=== PATIENT | male | born 1980 | race Caucasian/White ===

== ENCOUNTER 2018-09-24 10:28 | Emergency (ER) | payer BC ==
[~2018-09-24] VITALS: Ht 177.8 cm; Wt 88.5 kg
[~2018-09-24 10:28] MED LIST: BSP5T; CEPH500C PO; NAPR220C11 PO; PNT40TEC PO; PRX20T; PRX20T PO; SCR1T1 PO
--- OUTSIDE RECORDS SUMMARY | 2018-09-24 10:33 | XMS REPORT | Continuity of Care Document ---
Author Organization Unknown Address Unknown Allergies Active Description Code Type Severity Reaction Onset Reported/Identified Relationship to Patient Clinical Status Yes No Known Drug Allergies [id number] Drug Allergy Unknown N/A 02/02/2008 Medications There is no data. Problems Date Dx Coded Attending Type Code Diagnosis Diagnosed By 01/04/2012 Ot 305.02 01/04/2012 Ot 305.1 01/04/2012 Ot 531.00 01/04/2012 Ot 724.8 01/15/2012 Ot 569.49 10/23/2012 TANMAY BOSWELL Ot 883.1 10/23/2012 TANMAY BOSWELL Ot E000.8 10/23/2012 TANMAY BOSWELL Ot E029.9 10/23/2012 TANMAY BOSWELL Ot E920.8 07/24/2015 Ot V72.84 Procedures There is no data. Results There is no data. Encounters ACCT No. Visit Date/Time Discharge Status Pt. Type Provider Facility Loc./Unit Complaint [id number] 07/24/2015 16:27:00 07/24/2015 23:59:59 CLS Outpatient RACHEL ZUÑIGA MD [facility] RAD [id number] 10/23/2012 14:21:00 10/23/2012 14:56:00 DIS Emergency TANMAY BOSWELL [facility] ER [id number] 01/15/2012 08:47:00 Document Registration [id number] 01/14/2012 08:12:00 Document Registration [id number] 01/03/2012 13:00:00 Document Registration
[2018-09-24] MEDS ORDERED: PRD20T PO (10:50)
[2018-09-24] MEDS ORDERED: ACHD5005 PO (10:50)
--- NOTE | 2018-09-24 10:51 | ED Back Pain ---
General Stated Complaint: BACK PAIN Source of Information: Patient Exam Limitations: No Limitations History of Present Illness Date Seen by Provider: September 24, 2018 Time Seen by Provider: 10:46 Initial Comments To ER with midline low back pain. This began 2 days ago when he slipped while walking to the living room carrying a plate of food. He never spelled plate of food, caught himself before he ended up on the floor and never actually fell to the floor or against anything. He had no pain initially. The next day he noticed some soreness in his low back and intermittent shooting pains down both legs. No loss of sensation of genitals, no incontinence. Location: Lumbar Spine, Paraspinous Muscles Timing/Duration: 1-2 Days Severity: Moderate Pain/Injury Location: Back Radiation: Upper Legs Method of Injury: Fall (nearly fell) Associated Symptoms: muscle spasms; No fever, No weakness, No numbness in legs/ feet; tingling in legs/feet; No sensory/motor loss; lower back pain; No loss of bladder control, No loss of bowel control Allergies and Home Medications Allergies Coded Allergies: No Known Drug Allergies (Verified , 02/02/08) Home Medications Cephalexin Monohydrate 500 Mg Capsule, 1 EACH PO TID Prescribed by: TANMAY GO on 10/23/12 1445 Patient Home Medication List Home Medication List Reviewed: Yes Review of Systems Constitutional: see HPI EENTM: see HPI Respiratory: no symptoms reported Cardiovascular: no symptoms reported Genitourinary: no symptoms reported Musculoskeletal: see HPI, back pain Skin: no symptoms reported Psychiatric/Neurological: No Symptoms Reported Past Aioqduo-Hiofra-Decmhk Hx Patient Social History Recent Foreign Travel: No Contact w/Someone Who Travel: No Immunizations Up To Date Tetanus Booster (TDap): Less than 5yrs Past Medical History Reproductive Disorders: No Sexually Transmitted Disease: No Family Medical History No Pertinent Family Hx Physical Exam Vital Signs Capillary Refill : Height, Weight, BMI Height: '" Weight: lbs. oz. kg; BMI Method:Stated General Appearance: No Apparent Distress, WD/WN HEENT: PERRL/EOMI Respiratory: Normal Breath Sounds, No Accessory Muscle Use, No Respiratory Distress Back: Normal Inspection, Vertebral Tenderness Extremity: Normal Inspection, Normal Range of Motion Neurologic/Psychiatric: Alert, Oriented x3 Skin: Normal Color, Warm/Dry Departure Impression Primary Impression: Lumbar radiculopathy, acute Disposition: HOME, SELF-CARE Condition: Stable Departure-Patient Inst. Decision time for Depature: 10:48 Referrals: RACHEL ZUÑIGA MD (PCP/Family) Primary Care Physician Patient Instructions: Radiculopathy (DC) Add. Discharge Instructions: 1. This pain should resolve on its own in the course of up to a few weeks however it may only last a few days. If pain gets worse, if he developed fevers chills, lose sensation of genitals or lose control of bowel or bladders U should be reevaluated and possibly have MRI. In the meantime take steroids and the pain medication as directed. Scripts Prednisone (Prednisone) 20 Mg Tab 40 MG PO DAILY, #6 TAB 0 Refills Prov: MARY ELLEN YANES APRN 09/24/18 Hydrocodone Bit/Acetaminophen (Hydrocodone/Acetaminophen 5/325mg Tablet) 1 Tab Tab 1 EACH PO Q4-6HR PRN for PAIN-MODERATE MDD 10 for 3 Days, #14 TAB Prov: MARY ELLEN YANES APRN 09/24/18 MARY ELLEN YANES APRN September 24, 2018 10:51
--- NOTE | 2018-09-24 11:37 | Diagnostic Imaging Report ---
PATIENT HISTORY: Low back pain after fall. TECHNIQUE: 3 views of the lumbar spine COMPARISON: None FINDINGS: There is mild straightening of the lumbar lordosis without spondylolisthesis. Vertebral body heights are preserved. Disc heights are preserved. No acute fracture is seen. Bilateral sacroiliac joints appear patent. IMPRESSION: No acute osseous abnormality seen in the lumbar spine. Dictated by: Dictated on workstation # [id number]
[2018-09-24 12:05] VITALS: BP 136/87
== END 2018-09-24 12:05 | disposition home or self-care (01) ==
LOC: EDUNIT# 10:28 → ER 10:29
DX: M54.16 Radiculopathy, lumbar region (principal); W18.40XA Slipping, tripping and stumbling without falling, unspecified, initial encounter
CPT/HCPCS: 72100

== ENCOUNTER → 2020-04-16 | Outpatient (CLI) | payer BC ==
[~2020-04-16] MED LIST changes: +ACHD5005 PO; +PRD20T PO
== END ==
LOC: LABNPT 09:10
PROVIDERS: ATTEND Internal Medicine
DX: Z20.828 Contact with and (suspected) exposure to other viral communicable diseases (principal)
CPT/HCPCS: 87635

== ENCOUNTER 2022-08-16 01:22 | Emergency (ER) | payer BC ==
[~2022-08-16] VITALS: Ht 175 cm; Wt 96.6 kg
[2022-08-16] MEDS ORDERED: THIAMINE 100 MG (VITAMIN B-1) TAB PO ONE (01:30)
[2022-08-16] MEDS ORDERED: LACTATED RINGERS 1,000 ML IV STA (01:30)
--- NOTE | 2022-08-16 01:37 | ED General ---
General Chief Complaint: General Problems/Pain Stated Complaint: ANXIETY Source of Information: Patient, EMS Exam Limitations: No Limitations History of Present Illness Date Seen by Provider: Aug 16, 2022 Time Seen by Provider: 01:24 Initial Comments 41-year-old male with past medical history of alcohol use disorder coming in via EMS from home after he was drinking most of the night, and then felt like he started breathing fast, started noticing his lips were tingling, hands and feet were tingling and then later going numb, and felt like he was very anxious. EMS arrived and gave him 2 mg of IV Ativan which made him feel better. He states he had at least 2 mixed drinks and several beers today. He is having some subtle left-sided chest discomfort, but nothing significant. Mild shortness of breath also. Denies any cough, abdominal pain, nausea, vomiting, diaphoresis, diarrhea, focal weakness, headache, or any other concerns. Allergies and Home Medications Allergies Coded Allergies: No Known Drug Allergies (Verified , 02/02/08) Patient Home Medication List Home Medication List Reviewed: Yes Cephalexin Monohydrate (Cephalexin) 500 Mg Capsule, 1 EACH PO TID Prescribed by: TANMAY GO on 10/23/12 1445 Hydrocodone Bit/Acetaminophen (Lortab 5 Mg Tablet) 1 Tab Tab, 1 EACH PO Q4-6HR PRN for PAIN-MODERATE Prescribed by: MARY ELLEN YANES on 09/24/18 1050 Prednisone (Prednisone) 20 Mg Tab, 40 MG PO DAILY Prescribed by: MARY ELLEN YANES on 09/24/18 1050 Review of Systems Review of Systems Constitutional: No fever EENTM: no symptoms reported Respiratory: see HPI Cardiovascular: see HPI Gastrointestinal: no symptoms reported Genitourinary: no symptoms reported Musculoskeletal: no symptoms reported Skin: no symptoms reported Psychiatric/Neurological: See HPI Hematologic/Lymphatic: No Symptoms Reported Past Ioiwazf-Pudlfw-Gdvwyb Hx Patient Social History Alcohol Use?: Yes Alcohol Frequency: Daily Immunizations Up To Date Tetanus Booster (TDap): Less than 5yrs Past Medical History Surgeries: Yes ( TONSILS, KNEE SCOPE , HYDROCELE X2) Respiratory: No Cardiac: No Neurological: No Reproductive Disorders: No Sexually Transmitted Disease: No Gastrointestinal: No Musculoskeletal: No Endocrine: No Cancer: No Psychosocial: No Integumentary: No Blood Disorders: No Family Medical History No Pertinent Family Hx Physical Exam Vital Signs Vital Signs - First Documented Capillary Refill : Height, Weight, BMI Height: 5'10.00" Weight: 195lbs. oz. 88.449390ia; BMI Method:Stated General Appearance: Anxious, Other (Slurring words, intoxicated) Eyes: Bilateral Eye Normal Inspection HEENT: PERRL/EOMI, Normal ENT Inspection, Pharynx Normal Neck: Full Range of Motion, Normal Inspection, Non Tender, Supple Respiratory: Chest Non Tender, Lungs Clear, Normal Breath Sounds, No Accessory Muscle Use, No Respiratory Distress Cardiovascular: No Edema, Normal Peripheral Pulses (2+ pulses in his dorsalis pedis as well as his radial pulses), Tachycardia Gastrointestinal: Normal Bowel Sounds, Non Tender, Soft Back: Normal Inspection, No CVA Tenderness, No Vertebral Tenderness Extremity: Normal Capillary Refill, Normal Inspection, Normal Range of Motion, Non Tender, No Calf Tenderness, No Pedal Edema Neurologic/Psychiatric: Alert, Oriented x3, No Motor/Sensory Deficits, Normal Mood/Affect, offal icer poultry II-XII Norm as Tested Skin: Normal Color, Warm/Dry Progress/Results/Core Measures Suspected Sepsis SIRS Temperature: Pulse: Respiratory Rate: Laboratory Tests 08/16/22 01:45: White Blood Count 7.2 Blood Pressure / Mean: Laboratory Tests 08/16/22 01:45: Creatinine 0.81, Platelet Count 287, Total Bilirubin 0.4 Results/Orders Lab Results Laboratory Tests Test 08/16/22 01:45 Range/Units White Blood Count 7.2 4.3-11.0 10^3/uL Red Blood Count 4.96 4.30-5.52 10^6/uL Hemoglobin 15.7 13.3-17.7 g/dL Hematocrit 45 40-54 % Mean Corpuscular Volume 90 80-99 fL Mean Corpuscular Hemoglobin 32 25-34 pg Mean Corpuscular Hemoglobin Concent 35 32-36 g/dL Red Cell Distribution Width 13.2 10.0-14.5 % Platelet Count 287 130-400 10^3/uL Mean Platelet Volume 10.3 9.0-12.2 fL Immature Granulocyte % (Auto) 0 % Neutrophils (%) (Auto) 56 42-75 % Lymphocytes (%) (Auto) 29 12-44 % Monocytes (%) (Auto) 8 0-12 % Eosinophils (%) (Auto) 6 0-10 % Basophils (%) (Auto) 1 0-10 % Neutrophils # (Auto) 4.0 1.8-7.8 10^3/uL Lymphocytes # (Auto) 2.1 1.0-4.0 10^3/uL Monocytes # (Auto) 0.6 0.0-1.0 10^3/uL Eosinophils # (Auto) 0.4 H 0.0-0.3 10^3/uL Basophils # (Auto) 0.1 0.0-0.1 10^3/uL Immature Granulocyte # (Auto) 0.0 0.0-0.1 10^3/uL Sodium Level 143 135-145 MMOL/L Potassium Level 3.8 3.6-5.0 MMOL/L Chloride Level 110 H 98-107 MMOL/L Carbon Dioxide Level 17 L 21-32 MMOL/L Anion Gap 16 H 5-14 MMOL/L Blood Urea Nitrogen 7 7-18 MG/DL Creatinine 0.81 0.60-1.30 MG/DL Estimat Glomerular Filtration Rate 115 BUN/Creatinine Ratio 9 Glucose Level 95 70-105 MG/DL Calcium Level 8.4 L 8.5-10.1 MG/DL Corrected Calcium 8.3 L 8.5-10.1 MG/DL Magnesium Level 2.0 1.6-2.4 MG/DL Total Bilirubin 0.4 0.1-1.0 MG/DL Aspartate Amino Transf (AST/SGOT) 55 H 5-34 U/L Alanine Aminotransferase (ALT/SGPT) 103 H 0-55 U/L Alkaline Phosphatase 71 40-136 U/L Troponin I < 0.028 <0.028 NG/ML Total Protein 7.7 6.4-8.2 GM/DL Albumin 4.1 3.2-4.5 GM/DL Lipase 43 8-78 U/L My Orders Orders - BRENDAN HUDDLESTON MD Cbc With Automated Diff (08/16/22:30) Magnesium (08/16/22:30) Chest 1 View, Ap/Pa Only (08/16/22:30) Ekg Tracing (08/16/22:30) Comprehensive Metabolic Panel (08/16/22:30) O2 (08/16/22:30) Monitor-Rhythm Ecg Trace Only (08/16/22:30) Ed Iv/Invasive Line Start (3/26/23 01:30) Lipase (08/16/22 01:30) Troponin I Holly (08/16/22 01:30) Thiamine Tablet (Vitamin B-1 Tablet) (08/16/22 01:30) Lactated Ringers (Lr 1000 Ml Iv Solution (08/16/22 01:30) Medications Given in ED Current Medications Medications Dose Ordered Sig/Speedy Route Start Time Stop Time Status Last Admin Dose Admin Thiamine HCl 300 mg ONCE ONCE PO 08/16/22 01:30 08/16/22 01:32 DC 08/16/22 01:46 300 MG Vital Signs/I&O 08/16/22 08/16/22 01:24 01:24 Temp 36.6 Pulse 126 Resp 20 B/P (MAP) 135/94 (108) Pulse Ox 95 O2 Delivery Room Air Room Air Capillary Refill : Progress Note : Progress Note 41-year-old male with above history coming in initially after having an episode where he was breathing rapidly, felt his hands and feet tingle/go numb, lips tingling, mild chest discomfort. ABCs were intact and vitals were stable on presentation although he was tachycardic. EKG with no acute ischemic changes showing sinus tachycardia on my interpretation. Chest x-ray on my interpretation with normal cardiac silhouette, no pneumothorax, no large opacities that would be concerning for pneumonia. An IV was placed and basic labs were obtained including cardiac biomarkers. Troponin is negative. I did a [id number]-swsp ultrasound showing no pericardial effusion, normal ejection fraction, normal-appearing IVC. He is neurovascularly intact, and his neuro exam is unremarkable with no focal deficits. He is overall low risk for PE per [place] criteria and showing no clinical signs of a DVT. No family history of early cardiac . Not having any severe chest pain or neurovascular findings that would be concerning for dissection, I think it is highly unlikely. I discussed with the patient smoking cessation as well as paring down on his alcohol use. Overall, I believe he is stable for discharge with outpatient follow-up. He was sent home with strict return precautions. ECG Initial ECG Impression Date: Aug 16, 2022 Initial ECG Impression Time: 01:33 Initial ECG Rate: 115 Initial ECG Rhythm: S.Tach Comment Narrow QRS, normal axis, no significant ST changes or T wave abnormalities Diagnostic Imaging Diagonstic Imaging: Xray Plain Films/CT/US/NM/MRI: chest Departure Impression Primary Impression: Numbness and tingling Additional Impressions: Rapid breathing Alcohol use disorder Disposition: 01 HOME, SELF-CARE Condition: Stable Departure-Patient Inst. Decision time for Depature: 02:54 Referrals: RACHEL ZUÑIGA MD (PCP/Family) Primary Care Physician Patient Instructions: Paresthesia (DC) Add. Discharge Instructions: We are not seeing any evidence of anything life-threatening at this time. Things can always change, so if you have any concerns or worsening symptoms, you could always come back to the ER. We do recommend stopping smoking as well as limiting your alcohol use as this will eventually lead to things such as heart attacks and strokes. Your liver enzymes were also slightly elevated which also is a sign the alcohol is harming your liver. Work/School Note: Family Work Note, Patient Received Medical Care In the Emergency Department On: Aug 16, 2022 Patient Will Be Able to Return to Work/School On: Aug 17, 2022 Work Release Form Date Seen in the Emergency Department: Aug 16, 2022 Return to Work: Aug 17, 2022 Restrictions: No Restrictions BRENDAN HUDDLESTON MD Aug 16, 2022 01:37
[2022-08-16 01:58] LABS: BASOPHILS # (AUTO) 0.1 10^3/uL (0.0-0.1); BASOPHILS % (AUTO) 1 % (0-10); EOSINOPHILS # (AUTO) 0.4 10^3/uL (0.0-0.3); EOSINOPHILS % (AUTO) 6 % (0-10); HEMATOCRIT 45 % (40-54); HEMOGLOBIN 15.7 g/dL (13.3-17.7); LYMPHOCYTES # (AUTO) 2.1 10^3/uL (1.0-4.0); LYMPHOCYTES % (AUTO) 29 % (12-44); MEAN CORPUSCULAR HEMOGLOBIN 32 pg (25-34); MEAN CORPUSCULAR HGB CONC 35 g/dL (32-36); MEAN CORPUSCULAR VOLUME 90 fL (80-99); MEAN PLATELET VOLUME 10.3 fL (9.0-12.2); MONOCYTES # (AUTO) 0.6 10^3/uL (0.0-1.0); MONOCYTES % (AUTO) 8 % (0-12); NEUTROPHILS % (AUTO) 56 % (42-75); PLATELET COUNT 287 10^3/uL (130-400); WHITE BLOOD COUNT 7.2 10^3/uL (4.3-11.0)
[2022-08-16 02:08] LABS: ALBUMIN 4.1 GM/DL (3.2-4.5); POTASSIUM 3.8 MMOL/L (3.6-5.0)
[2022-08-16 02:09] LABS: CALCIUM 8.4 MG/DL (8.5-10.1)
[2022-08-16 02:10] LABS: TOTAL PROTEIN 7.7 GM/DL (6.4-8.2)
[2022-08-16 02:12] LABS: BILIRUBIN,TOTAL 0.4 MG/DL (0.1-1.0)
[2022-08-16 02:14] LABS: CREATININE SERUM 0.81 MG/DL (0.60-1.30)
[2022-08-16 02:52] VITALS: BP 128/89
--- NOTE | 2022-08-16 05:47 | Diagnostic Imaging Report ---
INDICATION: Chest pain COMPARISON: 07/24/2015 FINDINGS: Single frontal view of the chest demonstrates normal heart size and pulmonary vascularity. The lungs are well aerated and clear. No large pleural effusion or pneumothorax is seen. The visualized osseous structures show no acute abnormalities. IMPRESSION: 1. No acute cardiopulmonary process. Dictated by: Dictated on workstation # [id number]
== END 2022-08-16 03:03 | disposition home or self-care (01) ==
LOC: EDUNIT# 01:22 → ER 01:24
DX: R20.0 Anesthesia of skin (principal); R20.2 Paresthesia of skin; F10.20 Alcohol dependence, uncomplicated; R00.0 Tachycardia, unspecified; R07.89 Other chest pain
CPT/HCPCS: 36415; 71045; 80053; 83690; 83735; 84484; 85025; 93005; 93041

== ENCOUNTER → 2022-08-17 | Outpatient (CLI) | payer BC ==
--- NOTE | 2022-08-17 12:54 | Diagnostic Imaging Report ---
PROCEDURE: CT head without contrast. TECHNIQUE: Multiple contiguous axial images were obtained through the brain without the use of intravenous contrast. Auto Exposure Controls were utilized during the CT exam to meet ALARA standards for radiation dose reduction. INDICATION: Left weakness CT HEAD: CT images of the head were obtained. FINDINGS: Ventricles and sulci are within normal limits for size. There is no intracranial hemorrhage identified. There is no abnormal mass effect or shift of midline structures. IMPRESSION: Unremarkable CT of the head. Dictated by: Dictated on workstation # [id number]
== END ==
LOC: RAD 12:26
PROVIDERS: ATTEND Nurse Practitioner Family
DX: R53.1 Weakness (principal); R53.83 Other fatigue
CPT/HCPCS: 70450

== ENCOUNTER → 2022-08-20 | Outpatient (CLI) | payer BC ==
[2022-08-20 11:29] LABS: HEMATOCRIT 45 % (40-54); HEMOGLOBIN 15.6 g/dL (13.3-17.7); MEAN CORPUSCULAR HEMOGLOBIN 31 pg (25-34); MEAN CORPUSCULAR HGB CONC 34 g/dL (32-36); MEAN CORPUSCULAR VOLUME 90 fL (80-99); MEAN PLATELET VOLUME 10.4 fL (9.0-12.2); PLATELET COUNT 275 10^3/uL (130-400); WHITE BLOOD COUNT 7.6 10^3/uL (4.3-11.0)
[2022-08-20 11:42] LABS: AMPHETAMINE SCREEN, URINE NEGATIVE (NEGATIVE); BARBITURATE SCREEN URINE NEGATIVE (NEGATIVE); BENZODIAZEPINES SCREEN URINE NEGATIVE (NEGATIVE); CANNABINOID SCREEN, URINE NEGATIVE (NEGATIVE); COCAINE SCREEN URINE NEGATIVE (NEGATIVE); METHADONE STAT NEGATIVE (NEGATIVE); OPIATE SCREEN URINE NEGATIVE (NEGATIVE); OXYCODONE STAT NEGATIVE (NEGATIVE); PROPOXYPHENE STAT NEGATIVE (NEGATIVE); TRICYCLIC ANTIDEPRESSANTS SCRE NEGATIVE (NEGATIVE)
[2022-08-20 11:48] LABS: BILIRUBIN,TOTAL 0.5 MG/DL (0.1-1.0); CREATININE SERUM 0.84 MG/DL (0.60-1.30); POTASSIUM 3.9 MMOL/L (3.6-5.0); TOTAL PROTEIN 6.9 GM/DL (6.4-8.2)
== END ==
LOC: LAB 10:59
PROVIDERS: ATTEND Internal Medicine
DX: R53.83 Other fatigue (principal); R53.1 Weakness; R41.82 Altered mental status, unspecified
CPT/HCPCS: 36415; 80053; 80306; 84443; 85027; 86618; 86666; 86668; 86757

== ENCOUNTER → 2022-08-27 | Outpatient (CLI) | payer BC ==
[~2022-08-27] MED LIST changes: +GADOTERATE 0.5 MMOL/ML (CLARISCAN) 20 ML VIAL IV ONE
--- NOTE | 2022-08-27 17:05 | Diagnostic Imaging Report ---
PROCEDURE: MR imaging of the brain with and without contrast. TECHNIQUE: Multiplanar, multisequence MR imaging of the brain was performed with and without contrast. INDICATION: Weakness. Change in consciousness. Report of syncopal episodes. COMPARISON: CT head, 08/17/2022. FINDINGS: There is no diffusion restriction present to suggest acute ischemia. There is no MR evidence of intracranial hemorrhage. There is no intracranial mass effect demonstrated. There is no abnormal extra-axial collection. Hooker and white matter signal characteristics appear within normal limits. The ventricular system is appropriate in size and configuration. The basilar cisterns are patent. Posterior fossa is unremarkable. There is normal alignment of the craniocervical junction. Pituitary gland is unremarkable. The pineal region appears normal. Postcontrast imaging demonstrates no MR evidence of pathologic intracranial enhancement. No orbital abnormality evident on this nondedicated exam. The paranasal sinuses and mastoid air cells are clear. Expected arterial and dural venous sinus flow voids are preserved. Impression: No MR evidence of an acute intracranial abnormality. There is no evidence of ischemia, hemorrhage, parenchymal signal abnormality, intracranial mass effect, hydrocephalus, or pathologic intracranial enhancement. Dictated by: Dictated on workstation # [id number]
== END ==
LOC: RAD 13:45
PROVIDERS: ATTEND Internal Medicine
DX: R41.82 Altered mental status, unspecified (principal); R53.83 Other fatigue
CPT/HCPCS: 70553

== ENCOUNTER → 2023-03-10 | Outpatient (CLI) | payer BC ==
[~2023-03-10] MED LIST changes: -GADOTERATE 0.5 MMOL/ML (CLARISCAN) 20 ML VIAL IV ONE
--- NOTE | 2023-03-10 10:36 | Diagnostic Imaging Report ---
CLINICAL INDICATION: Patient is having chronic low back pain problems and recent increase in pain. EXAM: MRI of the lumbar spine performed without IV contrast. Sequences include sagittal T2, sagittal T1, sagittal T2 fat-sat, and axial T2. COMPARISON: X-ray of the lumbar spine dated 09/24/2018. FINDINGS: There is no acute lumbar spine fracture or dislocation. There are Modic type II degenerative signal changes involving the L3-L4 and L5-S1 endplate regions. The visualized portions of the distal thoracic spinal cord, conus medullaris, and cauda equina nerve roots are unremarkable. The conus medullaris tip is seen at the lower L1 vertebral body level. There is no significant paraspinal soft tissue abnormality. L1-L2: There is mild bilateral facet arthropathy. There is no significant central canal or neural foramen narrowing. L2-L3: There is mild bilateral facet arthropathy. There is no significant central canal or neural foramen narrowing. L3-L4: There is mild bilateral facet arthropathy. There is no significant central canal or neural foramen narrowing. L4-L5: There is moderate right facet arthropathy and mild left facet arthropathy. There is no significant central canal or neural foramen narrowing. L5-S1: There is a diffuse disk bulge with superimposed small to moderate sized posterior left paracentral disk extrusion/herniation component. There is mild loss of disk space height. There is moderate central canal stenosis. There is concern for encroachment upon the non-exited left S1 nerve root. There is narrowing of the left lateral recess. There is mild right neural foramen narrowing and mild to moderate left neural foramen narrowing. 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 2: There is L5-S1 diffuse disk bulge with superimposed posterior left paracentral disk herniation. There is concern for encroachment upon the non-exited left S1 nerve root. There is moderate central canal stenosis. There is mild right neural foramen narrowing and mild to moderate left neural foramen narrowing. Dictated by: Dictated on workstation # [id number]
== END ==
LOC: RAD 08:33
PROVIDERS: ATTEND Nurse Practitioner Family
DX: M47.817 Spondylosis without myelopathy or radiculopathy, lumbosacral region (principal); M51.37 Other intervertebral disc degeneration, lumbosacral region; M48.07 Spinal stenosis, lumbosacral region
CPT/HCPCS: 72148